=== PATIENT | male | born 2000 | race Caucasian/White ===

== ENCOUNTER 2021-02-20 12:20 | Inpatient (IN) | payer OTHER ==
[2021-02-20 12:48] LABS: #Basophils 0.1 thou/uL (0.0-0.2); #Eosinphils 0.2 thou/uL (0.0-0.7); #Lymphocytes 2.7 thou/uL (1.20-3.40); #Monocytes 0.4 thou/uL (0.11-0.59); %Basophils 0.9 % (0.0-1.0); %Eosinophils 2.9 % (0.0-10.0); %Lymphocytes 42.3 % (21.0-51.0); %Monocytes 6.6 % (0.0-10.0); %Neutrophils 47.2 % (42.0-75.0); Hemoglobin 15.9 g/dL (14.0-18.0); Mean Corpuscular HGB CONC 33.2 g/dL (32.0-36.0); Mean Corpuscular Volume 90.2 fL (78.0-98.0); Mean Platelet Volume 6.9 fL (7.4-10.4); Platelet Count 319 thou/uL (130-400); Red Blood Cell (RBC) Count 5.31 mill/uL (4.70-6.10); White Blood Cell (WBC) Count 6.4 thou/uL (4.8-10.8)
[2021-02-20 13:11] LABS: ALT (SGPT) 18 U/L (8-55); AST (SGOT) 20 U/L (5-34); Albumin 4.6 g/dL (3.5-5.0); Alkaline Phosphatase 59 U/L (40-110); Anion Gap 15 mmol/L (10-20); BUN (Urea Nitrogen) 11 mg/dL (8.9-20.6); Bilirubin, Total 1.6 mg/dL (0.2-1.2); Calc. Creatinine Clearance 0 mL/min (70-130); Calcium 9.7 mg/dL (7.8-10.44); Carbon Dioxide 21 mmol/L (22-29); Chloride 104 mmol/L (98-107); Globulin 2.7 g/dL (2.4-3.5); Glucose 113 mg/dL (70-105); Potassium 3.3 mmol/L (3.5-5.1); Protein, Total 7.3 g/dL (6.0-8.3); Sodium 137 mmol/L (136-145)
[2021-02-20] MEDS ORDERED: Morphine 10 MG/ML VIAL ONE (13:41)
[2021-02-20] MEDS ORDERED: Ketamine 50 MG/ML (10ML VIAL) ONE (13:52)
[2021-02-20] MEDS ORDERED: Fentanyl 100 MCG/2 ML VIAL ONE (14:59)
[2021-02-20] MEDS ORDERED: Ketorolac Tromethamine 30 MG/ML VIAL ONE (15:04)
[2021-02-20] MEDS ORDERED: Ondansetron PF 4 MG/2 ML Vial IVP PRN (15:14)
[2021-02-20] MEDS ORDERED: Dextrose 50% Abboject 50 ML SYRINGE SLOW IVP PRN (15:14)
[2021-02-20] MEDS ORDERED: Dextrose 5% in Water 1,000 ML IV PRN (15:14)
[2021-02-20] MEDS ORDERED: ceFAZolin Sodium/D5W 2 GM in Premix Bag 1 BAG IVPB SCH (15:15)
[2021-02-20] MEDS ORDERED: Sodium Chloride 0.9% 1,000 ML IV SCH ×2 (15:15→23:55)
[2021-02-20] MEDS ORDERED: traMADol HCl 50 MG TAB PO PRN (15:19)
[2021-02-20] MEDS ORDERED: Cyclobenzaprine 10 MG TAB PO PRN (15:19)
[2021-02-20 16:08] LABS: SARS-CoV-2 NAA Rapid Test Not Detected (NotDetected)
[2021-02-20] MEDS ORDERED: traMADol HCl 50 MG TAB ONE (17:48)
[2021-02-20] MEDS ORDERED: Cyclobenzaprine 10 MG TAB ONE (17:49)
[2021-02-20] MEDS ORDERED: Acetaminophen 500 MG TAB ONE (17:49)
[2021-02-20] MEDS: traMADol HCl 50 MG TAB PO SCH ×2 (17:54→21:08)
[2021-02-20] MEDS: Acetaminophen 500 MG TAB PO SCH ×2 (17:56→22:29)
[2021-02-20] MEDS ORDERED: Famotidine 20 MG TAB PO SCH (21:00)
[2021-02-20] MEDS: Ibuprofen 600 MG TAB PO SCH (21:07)
[2021-02-20] MEDS: Senokot S 8.6-50 MG TAB PO SCH (21:09)
[2021-02-20 21:20] VITALS: BMI 22.6
[2021-02-20] MEDS: Morphine 4 MG/ML VIAL SLOW IVP PRN (22:32)
[2021-02-21] MEDS: Acetaminophen 500 MG TAB PO SCH ×4 (03:35→21:15)
[2021-02-21] MEDS: traMADol HCl 50 MG TAB PO SCH ×4 (03:35→21:15)
[2021-02-21 05:29] LABS: #Eosinphils 0.2 thou/uL (0.0-0.7); #Lymphocytes 2.1 thou/uL (1.20-3.40); #Neutrophils 4.3 thou/uL (1.40-6.50); %Basophils 0.6 % (0.0-1.0); %Eosinophils 2.6 % (0.0-10.0); %Lymphocytes 27.8 % (21.0-51.0); %Monocytes 12.6 % (0.0-10.0); %Neutrophils 56.3 % (42.0-75.0); Hemoglobin 14.1 g/dL (14.0-18.0); Mean Corpuscular HGB CONC 34.1 g/dL (32.0-36.0); Mean Corpuscular Hemoglobin 31.4 pg (27.0-31.0); Mean Corpuscular Volume 92.1 fL (78.0-98.0); Mean Platelet Volume 6.7 fL (7.4-10.4); Platelet Count 242 thou/uL (130-400); Red Blood Cell (RBC) Count 4.51 mill/uL (4.70-6.10); White Blood Cell (WBC) Count 7.6 thou/uL (4.8-10.8)
[2021-02-21 05:50] LABS: Anion Gap 10 mmol/L (10-20); BUN (Urea Nitrogen) 12 mg/dL (8.9-20.6); Calc. Creatinine Clearance 93 mL/min (70-130); Calcium 8.6 mg/dL (7.8-10.44); Carbon Dioxide 26 mmol/L (22-29); Chloride 106 mmol/L (98-107); Glucose 90 mg/dL (70-105); Sodium 138 mmol/L (136-145)
[2021-02-21] MEDS: Ibuprofen 600 MG TAB PO SCH (05:51)
[2021-02-21] MEDS: Morphine 4 MG/ML VIAL SLOW IVP PRN (05:51)
[2021-02-21] MEDS ORDERED: Ibuprofen 600 MG TAB PO PRN (08:40)
[2021-02-21] MEDS: Senokot S 8.6-50 MG TAB PO SCH ×2 (09:21→21:17)
[2021-02-21] MEDS: Polyethylene Glycol 3350 17 GM Packet PO SCH (09:21)
[2021-02-21] MEDS: Sodium Chloride 0.9% 1,000 ML IV SCH ×3 (10:37→22:05)
[2021-02-21] MEDS ORDERED: Morphine 4 MG/ML VIAL ONE (11:50)
[2021-02-21] MEDS: Morphine 2 MG/ML VIAL SLOW IVP PRN (11:53)
[2021-02-21] MEDS ORDERED: HYDROmorphone 0.5 MG/0.5 ML SYRINGE ONE (12:12)
[2021-02-21] MEDS ORDERED: Fentanyl 100 MCG/2 ML VIAL ONE ×2 (12:20→14:36)
[2021-02-21] MEDS ORDERED: Midazolam HCl 2 mg/2 ml Vial ONE (12:21)
[2021-02-21] MEDS ORDERED: ceFAZolin 2 GM/DEX 5% 100 ML BAG ONE (12:25)
[2021-02-21] MEDS ORDERED: Ketorolac Tromethamine 30 MG/ML VIAL ONE (12:35)
[2021-02-21] MEDS ORDERED: PROPOFOL 200 MG/20 ML VIAL ONE (12:35)
[2021-02-21] MEDS ORDERED: Ondansetron PF 4 MG/2 ML Vial ONE (12:35)
[2021-02-21] MEDS ORDERED: Dexamethasone 20 MG/5 ML VIAL ONE (12:35)
[2021-02-21] MEDS ORDERED: Lidocaine 1% PF 5 ML VIAL ONE (12:35)
[2021-02-21] MEDS ORDERED: Bupivacaine PF 0.5% 30 ML VIAL ONE (13:15)
[2021-02-21] MEDS ORDERED: Meperidine HCl/PF 25 MG/ML VIAL SLOW IVP PRN (14:09)
[2021-02-21] MEDS ORDERED: Promethazine HCl 25 MG/ML VIAL IM PRN (14:09)
[2021-02-21] MEDS ORDERED: Promethazine HCl 25 MG/ML VIAL IVPB PRN (14:09)
[2021-02-21] MEDS ORDERED: Ondansetron HCl/PF 4 MG/2 ML Vial IVP PRN (14:09)
[2021-02-21] MEDS ORDERED: Morphine Sulfate 2 MG/ML SYRINGE SLOW IVP PRN (14:09)
[2021-02-21] MEDS: ceFAZolin Sodium/D5W 2 GM in Premix Bag 1 BAG IVPB SCH (19:22)
[2021-02-22] MEDS: Acetaminophen 500 MG TAB PO SCH ×2 (03:51→08:55)
[2021-02-22] MEDS: traMADol HCl 50 MG TAB PO SCH ×2 (03:51→08:55)
[2021-02-22] MEDS: ceFAZolin Sodium/D5W 2 GM in Premix Bag 1 BAG IVPB SCH (03:52)
[2021-02-22 03:59] VITALS: TEMP 97.9
[2021-02-22 07:42] VITALS: BP 133/76
[2021-02-22] MEDS: Senokot S 8.6-50 MG TAB PO SCH (08:55)
[2021-02-22] MEDS: Polyethylene Glycol 3350 17 GM Packet PO SCH (08:55)
[2021-02-22] MEDS ORDERED: Morphine 4 MG/ML VIAL ONE (09:42)
[2021-02-22] MEDS: Morphine 2 MG/ML VIAL SLOW IVP PRN (09:44)
[2021-02-22] MEDS: Sodium Chloride 0.9% 1,000 ML IV SCH (10:32)
[2021-02-23] MEDS ORDERED: FLU VACC QS2021-22(6MOS UP)/PF 60 MCG/0.5 ML SYRINGE IM ONE (09:00)
== END 2021-02-22 12:12 | disposition home or self-care (01) | DRG 494 ==
LOC: ERS 12:20 → ERHOLD 15:14 → SURG A 18:22
PROVIDERS: ADMIT Surgery; ATTEND Surgery
PROC: 0QSH34Z Reposition Left Tibia with Internal Fixation Device, Percutaneous Approach (ICD-10-PCS; principal; 2021-02-21)
DX: S82.252A Displaced comminuted fracture of shaft of left tibia, initial encounter for closed fracture (principal); I10 Essential (primary) hypertension; E78.5 Hyperlipidemia, unspecified; W19.XXXA Unspecified fall, initial encounter; J45.909 Unspecified asthma, uncomplicated; S82.452A Displaced comminuted fracture of shaft of left fibula, initial encounter for closed fracture; W22.8XXA Striking against or struck by other objects, initial encounter; Z20.822 Contact with and (suspected) exposure to COVID-19; Y92.89 Other specified places as the place of occurrence of the external cause
CPT/HCPCS: 29345; 36415; 71045; 76000; 80048; 80053; 85025; 93005; 96374; 96375; 96376; C1713; C1769; G0390; J1100; J1170; J1885; J2250; J2270; J2405; J2704; J3010; J7050; S0020; U0002